=== PATIENT | male | born 1965 | race African-American/Black ===

== ENCOUNTER → 2016-12-08 | Day surgery (SDC) | payer OTHER ==
[~2016-12-08] VITALS: Ht 182.9 cm; Wt 67.6 kg
[~2016-12-08] MED LIST: BACITRACIN PWD 50,000 UNITS VIAL As Ordered ONE; BACITRACIN PWD 50,000 UNITS VIAL IR ONE; BUPIVACAINE HCL 0.5% 30 ML VIAL As Ordered ONE; BUPIVACAINE HCL 0.5% 30 ML VIAL SC ONE; HYDROmorphone HCL 1 MG/ML SYRINGE (J1170) IV PRN; IBUP-1114 PO; INDO50CA PO; KETAMINE HCL 200 MG/20 ML VIAL As Ordered ONE; KETOROLAC 60 MG/2 ML VIAL (J1885) As Ordered ONE; LIDOCAINE 2% INJ 100 MG/5 ML SDV (FOR ANES.) As Ordered ONE; LIDOCAINE 2% MDV 20 ML VIAL As Ordered ONE; LIDOCAINE 2% MDV 20 ML VIAL SC ONE; LR 1,000 ML IV SCH; MIDAZOLAM INJ 2 MG/2 ML VIAL (J2250) As Ordered ONE; NEOSPORIN GU IRRIG 20 ML VIAL As Ordered ONE; NEOSPORIN GU IRRIG 20 ML VIAL IR ONE; ONDANSETRON 4MG/2ML VIAL (J2405) As Ordered ONE; ONDANSETRON 4MG/2ML VIAL (J2405) IV PRN; PERCOCET 5MG/325MG TAB As Ordered ONE; PERCOCET 5MG/325MG TAB PO PRN; PROPOFOL 200 MG/20 ML VIAL As Ordered ONE; ceFAZolin SOD 1 GM in D5W MINI-BAG PLUS 50 ML IV ONE; dexameTHASONE 4 MG/ML 1ML VIAL (J1100) As Ordered ONE; fentaNYL 100 MCG/2 ML INJECTION (J3010) IV PRN; fentaNYL 250 MCG/5 ML INJECTION (J3010) As Ordered ONE
--- NOTE | 2016-12-08 12:14 | REP ---
Clinical: Postoperative assessment. Technique: Portable AP, lateral, oblique views of the right foot. Findings: Postoperative changes at the first tarsometatarsal joint, second tarsal head and interphalangeal joint, and fifth tarsal head with relatively satisfactory alignment. Impression: Postsurgical changes. Signed by Ronald Bean MD 12/08/2016 12:05 P
[2016-12-08 14:15] VITALS: BP 140/85
--- NOTE | 2016-12-09 07:57 | RO ---
DATE OF PROCEDURE: 12/08/2016 PREOPERATIVE DIAGNOSIS: Hallux valgus metatarsus primus varus deformity right foot, long second metatarsal right foot, Tailor's bunion deformity right foot, hammertoe deformity second toe right foot. POSTOPERATIVE DIAGNOSIS: Hallux valgus metatarsus primus varus deformity right foot, long second metatarsal right foot, Tailor's bunion deformity right foot, hammertoe deformity second toe right foot. PROCEDURE: 1. Lapidus bunionectomy with screw and plate fixation right foot, shortening second metatarsal osteotomy with internal screw fixation right foot, Tailor's bunionectomy with distal V osteotomy, internal screw fixation right foot, second toe fusion with internal screw fixation second toe right foot. 2. Shortening second metatarsal osteotomy, internal screw fixation 2.5 mm x 12 mm x 1. 3. Tailor's bunionectomy with distal V osteotomy, internal screw fixation 2.5 mm x 18 mm. 4. Proximal interphalangeal joint fusion with DigiFuse 2.5 x 10 degree angled. SURGEON: Dr. Keshawn Hancock DPM [employer] IN[employer]IGATION LIEUTENANT: None. ANESTHESIA: Local MAC. HEMOSTASIS: Ankle pneumatic tourniquet at 225 mmHg for 103 minutes. HARDWARE UTILIZED: [employer] #1 plate, lot #[id number] with screw fixation 3.5 x 18 nonlocking, 3.5 x 22 nonlocking, 2.7 x 20 nonlocking and a 2.7 x 24 nonlocking and compression screw 3.5 x 36. IRRIGATION: Dilute bacitracin, neomycin and polymyxin B solution. DESCRIPTION OF PROCEDURE: On 12/08/2016, this 51-year-old black male was taken from his hospital room to the operating room and placed on the operating table in the supine position. Following the induction of intravenous (IV) sedation and local and regional anesthesia, the right lower extremity was prepped and draped in the usual aseptic manner. Attention was directed to the patient's right foot, sterile draping was completed and the following procedure was performed: LAPIDUS BUNIONECTOMY AND INTERNAL SCREW FIXATION RIGHT FOOT: Attention was directed to the patient's right foot where there was noted to be a hallux valgus deformity. At this time, an incision was made from the proximal aspect of the first metatarsocuneiform joint just distal to the first metatarsophalangeal joint. The incision was deepened through subcutaneous tissues and all coursing venous tributaries were identified, underscored, clamped, cut, ligated and electrocoagulated as necessary. A linear capsulotomy was performed in the same plane as the original skin incision over the first metatarsophalangeal joint. Capsular and periosteal envelope was created exposing the medial eminence, which was then osteotomized from distal to proximal, through and through, exiting medial to the sesamoidal groove. Attention was then directed on the lateral surface of the first metatarsal where dissection was carried down to the level of the suspensory ligament of the fibular sesamoid, which was transected. The sesamophalangeal and metatarsal sesamoidal ligament were sharply dissected free off the fibular sesamoid as well as the conjoined tendon. This allowed mobilization of the sesamoids. Attention was then directed to the base of the first metatarsocuneiform joint where dissection was carried exposing the articular cartilage. A wedge shape cut was taken through the articular cartilage, minimizing the amount of bone taken. This was then removed and utilizing a 2 mm drill bit, the bone surfaces were fenestrated. The wound was flushed with copious amounts of dilute bacitracin, neomycin and polymyxin B solution. Utilizing an LPS plate #1, the metatarsal was held in a reduced position and then fixated to the bone proximally utilizing 3.5 nonlocking screws, a 22 and an 18, distally a 2.7 x 20 and a 2.7 x 14 were utilized. Intraoperative C-arm imagery revealed good reduction of the intermetatarsal angle in good position of the fusion site. The wound was flushed with copious amounts of dilute bacitracin, neomycin and polymyxin B solution. The wound was packed with a saline moistened gauze for later closure. Attention was then directed to the second toe where the following procedure was performed: SHORTENING SECOND METATARSAL OSTEOTOMY WITH INTERNAL SCREW FIXATION 2.5 mm x 12 mm x 1 RIGHT FOOT: Attention was directed to the patient's foot where an incision was made from the distal third of the second metatarsal to just distal to the second metatarsophalangeal joint. Incision was deepened and the extensor tendon was moved in a lateral direction. Periosteal incision was made over the dorsal aspect of the second metatarsal. A Susana osteotomy was created shortening the bone approximately 5 mm and a 2.5 x 12 mm screw was used to stabilize the osteotomy. The overlying bone was then rongeured and rasped smooth. The wound was flushed with copious amounts of dilute bacitracin, neomycin and polymyxin B solution. The following procedure was performed: PROXIMAL INTERPHALANGEAL JOINT FUSION WITH DIGIFUSE 2.5 x 10 DEGREE ANGLED: The incision was then extended distally to the proximal interphalangeal joint. Transverse tenotomy and capsulotomy was performed and the extensor expansion was released. The medial and collateral ligaments were sharply dissected free from the proximal phalanx and utilizing a power saw, an osteotomy was performed through the anatomical neck of the proximal phalanx from dorsal to plantar, through and through and this was extirpated from the wound. Cartilage was then removed from the middle phalanx and this was removed. Utilizing a standard technique, a 2.5 x 10 degree angled DigiFuse was placed across the joint surface. Good position was noted of the hallux. The wound was flushed with copious amounts of dilute bacitracin, neomycin and polymyxin B solution. This was then covered with a saline moistened gauze dressing for later closure. Attention was directed to the lateral surface of the foot where the following procedure was performed: TAILOR'S BUNIONECTOMY WITH DISTAL V OSTEOTOMY, INTERNAL SCREW FIXATION: Attention was directed to the lateral surface of the foot where a linear incision was placed over the lateral aspect of the fifth metatarsophalangeal joint. The incision was deepened through subcutaneous tissues and all coursing venous tributaries were identified, underscored, clamped, cut, ligated and electrocoagulated as necessary. Linear capsulotomy was performed in the same plane as the original skin incision. The hypertrophied lateral eminence of the fifth metatarsal was then osteotomized from distal to proximal, through and through. A V-shaped osteotomy was performed in the metaphysis of the fifth metatarsal and was transposed approximately 30% of the width of the shaft of the fifth metatarsal and fixated with a 2.5 x 18 degree screw. Osteotomy was noted to be stable in all three cardinal planes. The redundant cortical spike was then osteotomized from dorsal to plantar, extirpated from the wound. The lateral surface was rasped to a smooth contour. The wound was again flushed with copious amounts of dilute bacitracin, neomycin and polymyxin B solution. Attention was directed towards closure where the capsular structures were coapted and maintained utilizing #3-0 Vicryl in a simple interrupted type fashion. The ankle pneumatic tourniquet was then rapidly deflated. The remaining closures were obtained wet. Subcutaneous tissues were coapted and maintained utilizing #4-0 Monocryl in a simple interrupted type fashion. Skin incision was coapted and maintained utilizing #4-0 Prolene in a simple interrupted and horizontal mattress type fashion. Attention was then directed to the Lapidus procedure where the wound was flushed with copious amounts of dilute bacitracin, neomycin and polymyxin B solution. Attention was directed towards closure where the capsular structures were coapted and maintained utilizing #3-0 Vicryl in a simple interrupted type fashion. Subcutaneous tissue was coapted and maintained utilizing #4-0 Vicryl in a simple interrupted type fashion. Skin incision was coapted and maintained using #4-0 Prolene in a simple interrupted and horizontal mattress type fashion. Attention was then directed to the patient's second toe where utilizing a #4-0 braided nylon loop suture, a four-stranded core repair was performed of the extensor tendon. Capsular structures were coapted and maintained using #3-0 Vicryl in a simple interrupted type fashion. Subcutaneous tissues were then coapted and maintained with #4-0 Monocryl in a simple interrupted type fashion. Skin incision was coapted and maintained using #4-0 Prolene in a simple interrupted and horizontal mattress type fashion. Following the completion of the surgical procedure, 4 mg of dexamethasone sodium phosphate was instilled proximal to the surgical site. Attention was directed towards bandaging where a sterile compressive bandage was applied consisting of Adaptic, 4 x 4's, 4 x 4 splints, Ana, Kerlix, and Coban. Ankle pneumatic tourniquet was rapidly deflated and instantaneous capillary filling time was noted in digits 1-5 of the patient's right foot. The patient having apparently tolerated the surgical procedure well was taken from the operating room to the recovery room, vital signs stable, patient afebrile, further monitoring by the anesthesia department. All surgical specimens removed during the operative procedure were sent to Pathology for gross and microscopic examination. Postoperative instructions given upon discharge.
== END | disposition home or self-care (01) ==
LOC: M SDC 06:15
PROVIDERS: ATTEND Podiatrist
DX: M20.11 Hallux valgus (acquired), right foot (principal); M21.621 Bunionette of right foot; M20.41 Other hammer toe(s) (acquired), right foot; Z86.59 Personal history of other mental and behavioral disorders
CPT/HCPCS: 28110; 28297; 28308; 73630; 88300; C1776; J0690; J1100; J1885; J2250; J2405; J3010

== ENCOUNTER 2017-09-19 08:06 | Day surgery (SDC) | payer OTHER ==
[~2017-09-19] VITALS: Ht 177.8 cm; Wt 71.7 kg
[~2017-09-19 08:06] MED LIST changes: -BACITRACIN PWD 50,000 UNITS VIAL As Ordered ONE; -BACITRACIN PWD 50,000 UNITS VIAL IR ONE; -BUPIVACAINE HCL 0.5% 30 ML VIAL As Ordered ONE; -BUPIVACAINE HCL 0.5% 30 ML VIAL SC ONE; -HYDROmorphone HCL 1 MG/ML SYRINGE (J1170) IV PRN; -KETAMINE HCL 200 MG/20 ML VIAL As Ordered ONE; -KETOROLAC 60 MG/2 ML VIAL (J1885) As Ordered ONE; -LIDOCAINE 2% MDV 20 ML VIAL As Ordered ONE; -LIDOCAINE 2% MDV 20 ML VIAL SC ONE; -LR 1,000 ML IV SCH; +MELO15TA4 PO; -NEOSPORIN GU IRRIG 20 ML VIAL As Ordered ONE; -NEOSPORIN GU IRRIG 20 ML VIAL IR ONE; -ONDANSETRON 4MG/2ML VIAL (J2405) As Ordered ONE; -ONDANSETRON 4MG/2ML VIAL (J2405) IV PRN; -PERCOCET 5MG/325MG TAB As Ordered ONE; -PERCOCET 5MG/325MG TAB PO PRN; -ceFAZolin SOD 1 GM in D5W MINI-BAG PLUS 50 ML IV ONE; -dexameTHASONE 4 MG/ML 1ML VIAL (J1100) As Ordered ONE; +fentaNYL 100 MCG/2 ML INJECTION (J3010) As Ordered ONE; -fentaNYL 100 MCG/2 ML INJECTION (J3010) IV PRN; -fentaNYL 250 MCG/5 ML INJECTION (J3010) As Ordered ONE
[2017-09-19] MEDS ORDERED: LR 1,000 ML IV ONE (08:15)
[2017-09-19] MEDS ORDERED: BUPIVACAINE HCL 0.5% 30 ML VIAL As Ordered ONE (08:18)
[2017-09-19] MEDS ORDERED: BACITRACIN PWD 50,000 UNITS VIAL As Ordered ONE (08:18)
[2017-09-19] MEDS ORDERED: NEOSPORIN GU IRRIG 20 ML VIAL As Ordered ONE (08:18)
[2017-09-19] MEDS ORDERED: dexameTHASONE 4 MG/ML 1ML VIAL (J1100) As Ordered ONE (08:18)
[2017-09-19] MEDS ORDERED: LIDOCAINE 2% MDV 20 ML VIAL As Ordered ONE (08:18)
[2017-09-19 08:42] LABS: MEAN CORPUSCULAR HEMOGLOBIN 28.4 pg (27.0-33.0); MEAN CORPUSCULAR HGB CONC 33.9 g/dl (32.0-36.5); MEAN CORPUSCULAR VOLUME 83.7 fl (80.0-96.0); PLATELET COUNT, AUTOMATED 260 10^3/uL (150-450); RED CELL DISTRIBUTION WIDTH 14.2 % (11.5-14.5); WHITE BLOOD COUNT 5.3 10^3/uL (4.0-10.0)
[2017-09-19 09:03] LABS: ANION GAP 8 MEQ/L (8-16); BLOOD UREA NITROGEN 13 MG/DL (7-18); CALCIUM LEVEL 8.8 MG/DL (8.5-10.1); CARBON DIOXIDE LEVEL 27 MEQ/L (21-32); CHLORIDE LEVEL 109 MEQ/L (98-107); CREATININE FOR GFR 1.06 MG/DL (0.70-1.30); GLOMERULAR FILTRATION RATE > 60.0 (>56); GLUCOSE, FASTING 87 MG/DL (70-105); POTASSIUM SERUM 3.9 MEQ/L (3.5-5.1); SODIUM LEVEL 144 MEQ/L (136-145)
[2017-09-19] MEDS ORDERED: LR 1,000 ML IV SCH (12:00)
[2017-09-19] MEDS ORDERED: ONDANSETRON 4MG/2ML VIAL (J2405) IV PRN (12:00)
[2017-09-19] MEDS: NORCO, ANEXSIA 5/325MG TABLET (HYDROcodone/ACETAMINOPHEN) PO PRN ×2 (12:08→13:04)
[2017-09-19 12:20] VITALS: BP 146/87
[2017-09-19] MEDS ORDERED: NORCO, ANEXSIA 5/325MG TABLET (HYDROcodone/ACETAMINOPHEN) As Ordered ONE (13:01)
--- NOTE | 2017-09-19 13:52 | REP ---
RIGHT FOOT COMPLETE: 09/19/2017. Clinical history: Comparison 12/08/2016. Four views are provided postoperatively. There has been removal of hardware from the first TMT joint seen on the previous exam. Screw tracts are evident. An osteotomy of the proximal phalanx of the great toe is noted with a single screw across it. There is a K-wire from the distal end of the middle phalanx into the distal shaft of the second metatarsal. Hardware at the PIP joint and osteotomy site of the distal second metatarsal head has been removed. Previous osteotomy and single screw in the fifth metatarsal head unchanged. No other significant or new finding. Signed by Rishi Leach MD 09/19/2017 07:40 P
--- NOTE | 2017-09-20 08:24 | RO ---
DATE OF PROCEDURE: 09/19/2017 PREOPERATIVE DIAGNOSES: Hallux valgus interphalangeus deformity. Hammertoe deformity 2nd toe right foot. Painful hardware right foot. POSTOPERATIVE DIAGNOSES: Hallux valgus interphalangeus deformity. Hammertoe deformity 2nd toe right foot. Painful hardware right foot. PROCEDURES PERFORMED: 1. Oma bunionectomy with internal screw fixation, 3.0 mm x 14 mm times one. 2. Proximal interphalangeal joint fusion with external wire fixation, 0.045 times one, right foot. 3. Z plasty tendon lengthening with tenorrhaphy and metatarsal phalangeal joint capsule release, right foot. 4. Removal of painful hardware 1st metatarsal, 2nd toe and 2nd metatarsal right foot. SURGEON: Keshawn Hancock DPM [employer] DIRECTOR: None. ANESTHESIA: IRRIGATION: Dilute bacitracin, neomycin and polymyxin B solution. HEMOSTASIS: Ankle pneumatic tourniquet at 225 mmHg for 74 minutes. DESCRIPTION OF OPERATION: On 09/19/2017, this 52-year-old male was taken from his hospital room to the operating room and placed on the operating room table in supine position. Following the induction of IV sedation, local and regional anesthesia, the right lower extremity was prepped and draped in the usual aseptic manner. Attention was then directed to the patient's right foot and the following procedure was performed: REMOVAL OF HARDWARE 1ST METATARSAL CUNEIFORM JOINT WITH OMA BUNIONECTOMY, INTERNAL FIXATION, RIGHT FOOT: Attention was directed to the patient's right foot where there was noted to be a previous cicatrix over the 1st metatarsal phalangeal joint. At this time, an incision was made over this previous cicatrix and dissection was carried down to the level of the hardware over the 1st metatarsal cuneiform joint. The plate was released from the periosteum and four screws holding the ORTHOLOC plate were removed followed by the plate itself. There was a 3.5 screw present in the base of the 1st metatarsal, however considerable bony overgrowth was noted, so therefore utilizing and osteotome and mallet, the shelf of bone over the dorsal margin of the screw was removed. After this removal, the screw was then removed and the wound was flushed with copious amounts of dilute bacitracin, neomycin and polymyxin B solution. Attention was then directed to the Oma bunionectomy where dissection was carried over the metatarsal phalangeal joint releasing the capsule around the metatarsal phalangeal joint and exposing the proximal phalanx. A 2.2 mm drill hole was placed through the proximal lateral aspect of the proximal phalanx acting as a hinge and a wedge of bone was removed obliquely across the metatarsal with the base orientated in a distal and medial direction. Approximately 6 mm of bone was removed and this was then reduced with a termite clamp and a 3.0 x 14 mm screw was placed across the osteotomy in the standard fashion with good compression noted at the osteotomy site. The wound was flushed with copious amounts of dilute bacitracin, neomycin and polymyxin B solution and the capsule was closed around the 1st metatarsal phalangeal joint. The subcutaneous tissues were coapted and maintained using #4-0 Monocryl in a simple interrupted type fashion and the skin incision was coapted and maintained utilizing #4-0 Prolene in a simple interrupted and horizontal mattress type fashion. Attention was then directed to the 2nd toe where the following procedure was performed. Z PLASTY TENDON LENGTHENING AND CORRECTION OF HAMMERTOE DEFORMITY 2ND TOE RIGHT FOOT AND REMOVAL OF HARDWARE: Attention was directed to the patient's second toe where there was noted to be a previous cicatrix. At this time, an incision was placed over the proximal interphalangeal joint longitudinally on the 2nd toe. The incision was deepened through subcutaneous tissues and all coursing venous tributaries were identified, underscored, clamped, cut and electrocoagulated as necessary. A nonunion was noted at the proximal interphalangeal joint and utilizing an osteotome and mallet this was gently opened exposing the DigiFuse, which was then removed. Utilizing a power saw, an osteotomy was performed freshening up the osteotomy sites of the proximal phalanx and base of the middle phalanx. The wound was flushed with copious amounts of dilute bacitracin, neomycin and polymyxin B solution. The Z plasty tendon lengthening then had the tendon also released proximally. The following procedure was performed. 2ND METATARSAL PHALANGEAL JOINT CAPSULOTOMY WITH TENORRHAPHY OF THE EXTENSOR TENDON: The incision was then deepened proximal to the metatarsal phalangeal joint and the tendon was then completely released proximal to the metatarsal phalangeal joint with the tenotomy scissors. A transverse tenotomy and capsulotomy was performed to the level of the metatarsal phalangeal joint and utilizing a metatarsal elevator, the plantar plate was released. Attention was then directed towards hardware of the 2nd metatarsal where the periosteum was elevated over the dorsal surface of the second metatarsal and a 2.5 mm screw was removed from the metatarsal. After screw removal, attention was then directed towards the second toe where fixation was applied. Utilizing a 0.045 Andrae double ended wire, the wire was driven through the middle and distal phalanxes and then retrograded through the proximal phalanx across the metatarsal phalangeal joint, holding the toe in a slightly over corrected plantar position. The wire as then bent and a protective cap was placed on the distal end of the Andrae wire. Attention was directed towards closure where the Z plasty tendon lengthening was repaired with a four stranded Burns core repair, augmented with a peripheral stitch with #4-0 braided nylon. Subcutaneous tissues were coapted and maintained utilizing #4-0 Monocryl in a simple interrupted type fashion. Skin incisions were coapted and maintained utilizing #4-0 Prolene in a simple interrupted and horizontal mattress type fashion. Attention was then directed towards bandaging where the foot was bandaged with Adaptic, 4 x 4's, splints, Ana, Kerlix and Coban. The ankle pneumatic tourniquet was rapidly deflated and instantaneous capillary refilling time was noted to digits 1 through 5 of the patient's right foot. The patient, after having apparently tolerated the surgical procedure well, was taken from the OR to the recovery room with vital signs stable and patient afebrile for further monitoring by the anesthesiology department. All surgical specimens removed during the operative procedure were sent to pathology for gross and microscopic examination. Postop instructions will be given upon discharge.
== END 2017-09-19 13:14 | disposition home or self-care (01) ==
LOC: M SDC 08:06
PROVIDERS: ATTEND Podiatrist
DX: M20.11 Hallux valgus (acquired), right foot (principal); M20.5X1 Other deformities of toe(s) (acquired), right foot; M20.41 Other hammer toe(s) (acquired), right foot; M79.671 Pain in right foot; Z47.2 Encounter for removal of internal fixation device; Z79.899 Other long term (current) drug therapy
CPT/HCPCS: 20680; 28270; 28285; 28298; 36415; 73630; 80048; 85027; 88300; C1713; J0690; J1100; J2250; J3010